=== PATIENT | female | born 1985 | race Two or more races ===

== ENCOUNTER 2017-07-06 00:28 | Emergency (ER) | payer SELFPAY ==
[~2017-07-06] VITALS: Ht 162.6 cm; Wt 63.5 kg
[2017-07-06] MEDS: SULFACETAMIDE SOD 10% OPHT DR 15 ML BOTTLE OP ONE (01:30)
--- NOTE | 2017-07-06 01:31 | NUR ---
Patient discharged to home in stable conditon. Written and verbal after care instructions given. Patient verbalizes understanding of instructions.
[2017-07-06 01:32] VITALS: BP 142/72
[2017-07-06] MEDS ORDERED: SULFACETAMIDE SOD 10% OPHT DR 15 ML BOTTLE ONE (01:41)
== END 2017-07-06 01:31 ==
LOC: ER 00:33
DX: J32.9 Chronic sinusitis, unspecified (principal); H10.9 Unspecified conjunctivitis
CPT/HCPCS: A4663